=== PATIENT | female | born 1965 | race Caucasian/White ===

== ENCOUNTER 2017-12-14 19:10 | Emergency (ER) | payer SELFPAY, OTHER | END 2017-12-14 22:50 | disposition left against medical advice (07) | LOC: E/R 19:10 | DX: Z53.21 Procedure and treatment not carried out due to patient leaving prior to being seen by health care provider (principal) | CPT/HCPCS: 93005 ==

== ENCOUNTER 2018-01-13 19:19 | Emergency (ER) | payer MEDICAID ==
[2018-01-13] MEDS: IBUPROFEN 200 MG TAB PO (20:10)
== END 2018-01-13 22:00 | disposition home or self-care (01) ==
LOC: FTE 19:19
DX: J02.9 Acute pharyngitis, unspecified (principal)
CPT/HCPCS: 87880; 99283

== ENCOUNTER 2019-01-01 14:44 | Emergency (ER) | payer MEDICAID ==
[2019-01-01] MEDS: SOD CHLORIDE 0.9% 1,000 ML IV (20:57)
[2019-01-01] MEDS: KETOROLAC 15 MG INJ IV (20:57)
[2019-01-01 20:58] LABS: ADD MAN DIFF? NO
[2019-01-01 20:59] LABS: BASOPHIL # 0.1 10^3/ul (0.0-0.1); BASOPHILS % 0.6 % (0.0-2.0); EOSINOPHILS # 0.2 10^3/ul (0.0-0.5); EOSINOPHILS % 2.2 % (0.0-7.0); HEMOGLOBIN 13.5 g/dl (12.0-16.0); LYMPHOCYTES # 3.8 10^3/ul (0.8-2.9); MEAN CORPUSCULAR HEMOGLOBIN 29.3 pg (29.0-33.0); MEAN CORPUSCULAR HGB CONC 32.9 g/dl (32.0-37.0); MEAN CORPUSCULAR VOLUME 89.1 fl (82.0-101.0); MONOCYTE # 0.5 10^3/ul (0.3-0.9); MONOCYTES % 5.6 % (0.0-11.0); NEUTROPHIL # 4.3 10^3/ul (1.6-7.5); NEUTROPHILS % 48.2 % (39.0-77.0); PLATELET COUNT 287 10^3/UL (140-415); RED CELL DISTRIBUTION WIDTH 12.3 % (11.5-14.5)
[2019-01-01 20:59] LABS: WHITE BLOOD COUNT 8.9 10^3/ul (4.8-10.8)
[2019-01-01 21:26] LABS: ALANINE AMINOTRANSFERASE 80 IU/L (13-69); ALBUMIN 4.3 g/dl (3.3-4.9); ALBUMIN/GLOBULIN RATIO 1.02; ALKALINE PHOSPHATASE 153 IU/L (42-121); ANION GAP 10 (5-13); ASPARTATE AMINO TRANSFERASE 77 IU/L (15-46); BILIRUBIN,INDIRECT 0.5 mg/dl (0-1.1); BILIRUBIN,TOTAL 0.5 mg/dl (0.2-1.3); BLOOD UREA NITROGEN 16 mg/dl (7-20); CALCIUM 10.3 mg/dl (8.4-10.2); CARBON DIOXIDE 26 mmol/L (21-31); CHLORIDE 105 mmol/L (97-110); Estimated GFR > 60 mL/min (>60); GLUCOSE 91 mg/dl (70-220); LIPASE 112 U/L (23-300); SODIUM 141 mmol/L (135-144); TOTAL PROTEIN 8.5 g/dl (6.1-8.1)
[2019-01-01 21:37] LABS: TROPONIN-I < 0.012 ng/ml (0.000-0.120)
== END 2019-01-01 22:30 | disposition home or self-care (01) ==
LOC: E/R 14:44
DX: S16.1XXA Strain of muscle, fascia and tendon at neck level, initial encounter (principal); S39.012A Strain of muscle, fascia and tendon of lower back, initial encounter; R07.9 Chest pain, unspecified; X50.1XXA Overexertion from prolonged static or awkward postures, initial encounter; Y92.9 Unspecified place or not applicable
CPT/HCPCS: 36415; 71045; 80053; 83690; 84484; 85025; 93005; 96374; 99284-25

== ENCOUNTER 2019-01-05 13:23 | Observation (INO) | payer MEDICAID ==
[2019-01-05 15:26] LABS: ADD MAN DIFF? NO
[2019-01-05 15:31] LABS: WHITE BLOOD COUNT 9.8 10^3/ul (4.8-10.8)
[2019-01-05 15:32] LABS: BASOPHIL # 0.1 10^3/ul (0.0-0.1); BASOPHILS % 0.5 % (0.0-2.0); EOSINOPHILS # 0.2 10^3/ul (0.0-0.5); EOSINOPHILS % 1.7 % (0.0-7.0); HEMATOCRIT 38.5 % (37.0-47.0); LYMPHOCYTES # 2.8 10^3/ul (0.8-2.9); LYMPHOCYTES % 28.9 % (15.0-51.0); MEAN CORPUSCULAR HEMOGLOBIN 29.8 pg (29.0-33.0); MEAN CORPUSCULAR HGB CONC 33.8 g/dl (32.0-37.0); MEAN CORPUSCULAR VOLUME 88.3 fl (82.0-101.0); MEAN PLATELET VOLUME 11.1 fl (7.4-10.4); MONOCYTE # 0.6 10^3/ul (0.3-0.9); MONOCYTES % 5.7 % (0.0-11.0); NEUTROPHIL # 6.1 10^3/ul (1.6-7.5); NEUTROPHILS % 62.8 % (39.0-77.0); PLATELET COUNT 253 10^3/UL (140-415); RED BLOOD COUNT 4.36 10^6/ul (4.20-5.40)
[2019-01-05] MEDS: KETOROLAC 30 MG INJ IV (15:39)
[2019-01-05 15:55] LABS: ANION GAP 12 (5-13); BLOOD UREA NITROGEN 19 mg/dl (7-20); CALCIUM 9.7 mg/dl (8.4-10.2); CARBON DIOXIDE 23 mmol/L (21-31); CHLORIDE 108 mmol/L (97-110); CREATININE 0.62 mg/dl (0.44-1.00); Estimated GFR > 60 mL/min (>60); GLUCOSE 128 mg/dl (70-220); POTASSIUM 3.7 mmol/L (3.5-5.1); SODIUM 143 mmol/L (135-144)
[2019-01-05 16:06] LABS: TROPONIN-I < 0.012 ng/ml (0.000-0.120)
[2019-01-05] MEDS: NITROGLYCERIN 2% 1 GM OINT PKT TD (16:16)
[2019-01-05] MEDS: ASPIRIN 81 MG TAB PO (16:16)
[2019-01-05] MEDS ORDERED: NITROGLYCERIN (SL) 0.4 MG TAB SL (17:00)
[2019-01-05] MEDS ORDERED: morphine 2 MG INJ IV (17:00)
[2019-01-05] MEDS ORDERED: NACL 0.9% 3 ML SYG IV (17:00)
[2019-01-05] MEDS: IOHEXOL 100 ML (17:22)
[2019-01-05] MEDS: SOD CHLORIDE 0.9% 100 ML (17:22)
[2019-01-05] MEDS: DICLOFENAC SODIUM 1% GEL 100 GM TUBE TP ×2 (17:30→21:00)
[2019-01-05] MEDS: HYDROCODONE/APAP (5/325) TAB PO (20:57)
[2019-01-05] MEDS: ATORVASTATIN 80 MG TAB PO (20:57)
[2019-01-05 22:02] LABS: CREATINE KINASE 72 IU/L (23-200)
[2019-01-05 22:14] LABS: CK-MB 0.71 ng/ml (0.0-2.4); TROPONIN-I < 0.012 ng/ml (0.000-0.120)
[2019-01-05] MEDS: HEPARIN 5,000 UNIT/1 ML VIAL SC (22:14)
[2019-01-06] MEDS: ZOLPIDEM 5 MG TAB PO (03:30)
[2019-01-06 03:32] LABS: ADD MAN DIFF? NO
[2019-01-06 03:57] LABS: WHITE BLOOD COUNT 8.6 10^3/ul (4.8-10.8)
[2019-01-06 03:57] LABS: BASOPHILS % 0.5 % (0.0-2.0); CREATINE KINASE 68 IU/L (23-200); EOSINOPHILS # 0.4 10^3/ul (0.0-0.5); EOSINOPHILS % 4.3 % (0.0-7.0); HEMATOCRIT 39.5 % (37.0-47.0); HEMOGLOBIN 13.1 g/dl (12.0-16.0); LYMPHOCYTES # 4.6 10^3/ul (0.8-2.9); LYMPHOCYTES % 53.3 % (15.0-51.0); MEAN CORPUSCULAR HEMOGLOBIN 29.3 pg (29.0-33.0); MEAN CORPUSCULAR HGB CONC 33.2 g/dl (32.0-37.0); MEAN CORPUSCULAR VOLUME 88.4 fl (82.0-101.0); MEAN PLATELET VOLUME 10.5 fl (7.4-10.4); MONOCYTE # 0.6 10^3/ul (0.3-0.9); NEUTROPHILS % 34.5 % (39.0-77.0); PLATELET COUNT 270 10^3/UL (140-415); RED BLOOD COUNT 4.47 10^6/ul (4.20-5.40); RED CELL DISTRIBUTION WIDTH 12.2 % (11.5-14.5)
[2019-01-06 03:58] LABS: CHOLESTEROL 197 mg/dl (100-200)
[2019-01-06 03:58] LABS: CHOL/HDL RATIO 3.2 RATIO; HDL CHOLESTEROL 61 mg/dl (37-92); LDL CHOLESTEROL,CALCULATED 120 mg/dl; TRIGLYCERIDES 80 mg/dl (0-149)
[2019-01-06 04:00] LABS: HEMOGLOBIN A1C 5.5 % (0-5.9)
[2019-01-06 04:00] LABS: ALANINE AMINOTRANSFERASE 45 IU/L (13-69); ALBUMIN/GLOBULIN RATIO 1.11; ALKALINE PHOSPHATASE 149 IU/L (42-121); ANION GAP 10 (5-13); ASPARTATE AMINO TRANSFERASE 39 IU/L (15-46); BILIRUBIN,INDIRECT 0.7 mg/dl (0-1.1); BILIRUBIN,TOTAL 0.7 mg/dl (0.2-1.3); BLOOD UREA NITROGEN 20 mg/dl (7-20); CALCIUM 9.7 mg/dl (8.4-10.2); CARBON DIOXIDE 24 mmol/L (21-31); CHLORIDE 108 mmol/L (97-110); CREATININE 0.76 mg/dl (0.44-1.00); Estimated GFR > 60 mL/min (>60); GLUCOSE 102 mg/dl (70-220); MAGNESIUM 2.3 mg/dl (1.7-2.5); POTASSIUM 4.2 mmol/L (3.5-5.1); SODIUM 142 mmol/L (135-144); TOTAL PROTEIN 7.6 g/dl (6.1-8.1)
[2019-01-06 04:15] LABS: CK-MB 0.69 ng/ml (0.0-2.4); TROPONIN-I < 0.012 ng/ml (0.000-0.120)
[2019-01-06] MEDS: DICLOFENAC SODIUM 1% GEL 100 GM TUBE TP ×2 (08:12→13:02)
[2019-01-06] MEDS: ASPIRIN 81 MG TAB PO (08:13)
[2019-01-06] MEDS: HEPARIN 5,000 UNIT/1 ML VIAL SC (08:15)
[2019-01-06] MEDS: ACETAMINOPHEN 325 MG TAB PO (11:52)
== END 2019-01-06 16:10 | disposition home or self-care (01) ==
LOC: E/R 13:23 → TEL 16:37
DX: R07.9 Chest pain, unspecified (principal); M25.512 Pain in left shoulder
CPT/HCPCS: 36415; 71045; 71275; 73030; 73200; 73221; 80048; 80053; 80061; 82550; 82553; 83036; 83735; 84484; 85025; 93005; 93306; 96374; 99285-25; G0378

== ENCOUNTER 2019-01-08 14:31 | Emergency (ER) | payer MEDICAID ==
[2019-01-08] MEDS: MECLIZINE 12.5 MG TAB PO (15:46)
== END 2019-01-08 17:24 | disposition home or self-care (01) ==
LOC: E/R 14:31
DX: R42 Dizziness and giddiness (principal); I10 Essential (primary) hypertension
CPT/HCPCS: 70450; 82962; 93005; 99284-25

== ENCOUNTER 2019-01-20 11:03 | Emergency (ER) | payer SELFPAY, MEDICAID | END 2019-01-20 17:02 | disposition left against medical advice (07) | LOC: E/R 11:03 | DX: Z53.21 Procedure and treatment not carried out due to patient leaving prior to being seen by health care provider (principal) | CPT/HCPCS: 93005 ==